=== PATIENT | male | born 1960 | race Two or more races ===

== ENCOUNTER 2017-04-07 10:50 | Inpatient (IN) | payer MEDICARE, MEDICAID ==
[~2017-04-07] VITALS: Ht 177.8 cm; Wt 77.1 kg
[2017-04-07] MEDS ORDERED: MAGNESIUM HYDROXIDE 30 ML UDC PO PRN (14:00)
[2017-04-07] MEDS ORDERED: ACETAMINOPHEN 325 MG TABLET PO PRN (14:00)
[2017-04-07] MEDS ORDERED: MAG HYDROX/AL HYDROX/SIMETH 30 ML UDC PO PRN (14:00)
[2017-04-07] MEDS ORDERED: METO50TA3 PO (14:22)
[2017-04-07] MEDS ORDERED: CLOP75TA2 PO (14:22)
[2017-04-07] MEDS ORDERED: SITA1TAB2 PO (14:22)
[2017-04-07] MEDS ORDERED: ASPI81TA2 PO (14:22)
[2017-04-07] MEDS ORDERED: HYDR-552 PO (14:22)
[2017-04-07] MEDS ORDERED: ALPR0.5T PO (14:22)
--- NOTE | 2017-04-07 15:04 | NUR ---
RN-CO: Admitted a 56 year old male from [facility] ER from home, on a 5150 hold for gravely disabled adult. He is alert and oriented x4, bright affect , calm and cooperative to care which was observe during face to face assessment. Dr Chavez gave his admitting orders at 1300. Dr Lopez was paged to reconcile his home medications.
--- NOTE | 2017-04-07 15:11 | NUR ---
RN-CO: Patient noted with a multiple lacerations on left arm he stated that he did not hurt himself. No s/s of infections noted and pictures where taken. Per hold he has auditory and visual hallucinations however patient denied it. Dr Lopez called back and he stated that he will reconcile patient's home medications.
--- NOTE | 2017-04-07 15:14 | NUR ---
RN-CO: Patient was given "Patient's right hand book" and encouraged him to asked questions. He was also oriented to the unit.
[2017-04-07 16:31] VITALS: BP 128/81
[2017-04-07] MEDS ORDERED: METFORMIN 500 MG TABLET PO SCH (17:00)
[2017-04-07] MEDS: ARIPIPRAZOLE 2 MG TABLET PO SCH (17:36)
[2017-04-07] MEDS: ASPIRIN 81 MG TAB.CHEW PO SCH (17:37)
[2017-04-07] MEDS: ESCITALOPRAM OXALATE (10 MG) 10 MG TABLET PO SCH (17:37)
[2017-04-07] MEDS: CLOPIDOGREL BISULFATE 75 MG TABLET PO SCH (17:37)
[2017-04-07] MEDS: METOPROLOL TARTRATE 50 MG TABLET PO SCH (17:38)
[2017-04-07] MEDS: HYDROCODONE/APAP 5/325MG 1 EACH TABLET PO PRN (17:43)
--- NOTE | 2017-04-07 19:10 | NUR ---
GPS RN NOTES RECEIVED PT SITTING IN BED A/O X3,AWAKE, ABLE TO VERBALIZE NEEDS. NO DISTRESS, NO SOB. MED COMPLIANT. SAFETY PRECAUTIONS OBSERVED. WILL CONTINUE TO MONITOR.
[2017-04-07] MEDS ORDERED: NICOTINE PATCH (21MG) 21 MG PATCH.TD24 TD SCH (19:30)
[2017-04-07 20:00] VITALS: BP 106/66
[2017-04-07] MEDS: GABAPENTIN 300 MG CAPSULE PO SCH (20:43)
[2017-04-08] MEDS: TEMAZEPAM 7.5 MG CAPSULE PO PRN ×2 (00:44→21:26)
--- NOTE | 2017-04-08 06:23 | NUR ---
GPS RN NOTES PT IN BED , RESTING COMFORTABLY., AROUSABLE, A/O X3, ABLE TO MAKE NEEDS KNOWN. NO DISTRESS, NO SOB. MED COMPLIANT. SAFETY PRECAUTIONS OBSERVED. WILL ENDORSE TO NEXT SHIFT FOR REBECCA.
[2017-04-08 07:39] LABS: BASOPHILS % (AUTO) 0.5 % (0.0-2.0); EOSINOPHILS # (AUTO) 0.2 /CMM (0.0-0.7); EOSINOPHILS % (AUTO) 1.6 % (0.0-6.0); HEMATOCRIT 48 % (39-51); HEMOGLOBIN 16.3 g/dL (13.5-17.5); LYMPHOCYTES # (AUTO) 2.1 /CMM (0.8-4.8); LYMPHOCYTES % (AUTO) 21.6 % (20.0-44.0); MEAN CORPUSCULAR HEMOGLOBIN 31 PG (26.0-33.0); MEAN CORPUSCULAR HGB CONC 34 g/dl (31.0-36.0); MEAN CORPUSCULAR VOLUME 91 fL (80-96); MONOCYTES # (AUTO) 0.7 /CMM (0.1-1.30); MONOCYTES % (AUTO) 7.3 % (2.0-12.0); NEUTROPHILS # (AUTO) 6.7 /CMM (1.8-8.9); PLATELET COUNT (AUTO) 152 /CMM (150-450); RDW COEFFICIENT OF VARIATION 13.4 (11.5-15.0); RED BLOOD CELL COUNT(AUTO) 5.22 MIL/uL (4.5-6.0); WHITE BLOOD COUNT (AUTO) 9.7 K/uL (4.3-11.0)
[2017-04-08 08:00] VITALS: BP 141/88
[2017-04-08 08:01] LABS: ALBUMIN 3.6 g/dL (3.4-5.0); BILIRUBIN,TOTAL 0.8 mg/dL (0.2-1.0); CALCIUM, SERUM 8.3 mg/dL (8.5-10.1); CREATININE 0.9 mg/dL (0.6-1.3); POTASSIUM 4.1 mmol/L (3.5-5.1); TOTAL PROTEIN, SERUM 6.6 g/dL (6.4-8.2)
[2017-04-08] MEDS: ESCITALOPRAM OXALATE (10 MG) 10 MG TABLET PO SCH (08:42)
[2017-04-08] MEDS: METOPROLOL TARTRATE 50 MG TABLET PO SCH (08:42)
[2017-04-08] MEDS: ASPIRIN 81 MG TAB.CHEW PO SCH (08:42)
[2017-04-08] MEDS: LINAGLIPTIN 5 MG TABLET PO SCH (08:42)
[2017-04-08] MEDS: ARIPIPRAZOLE 2 MG TABLET PO SCH (08:42)
[2017-04-08] MEDS: GABAPENTIN 300 MG CAPSULE PO SCH ×3 (08:42→17:38)
[2017-04-08] MEDS: CLOPIDOGREL BISULFATE 75 MG TABLET PO SCH (08:43)
[2017-04-08] MEDS: HYDROCODONE/APAP 5/325MG 1 EACH TABLET PO PRN ×2 (08:44→20:15)
[2017-04-08] MEDS: NICOTINE PATCH (21MG) 21 MG PATCH.TD24 TD SCH (08:44)
--- NOTE | 2017-04-08 13:26 | NUR ---
WOUND CARE CONSULT PATIENT WITH JAYMIE AT 22, AMBULATORY, PRESENTS WITH DRY ABRASIONS TO THE LEFT ARM FROM "SCRATCHING". RECOMMEND KEEP CLEAN AND DRY AND OPEN TO AIR. WILL SEE PRN.
[2017-04-08 16:00] VITALS: BP 115/83
--- NOTE | 2017-04-08 16:28 | NUR ---
Recreation Therapy NOte. Addendum: 04/08/17 at 1628 by KENYON VENCES REC Amended: Links added.
[2017-04-08] MEDS: METFORMIN 500 MG TABLET PO SCH (17:38)
[2017-04-08] MEDS: glipiZIDE 5 MG TABLET PO SCH (17:38)
[2017-04-08] MEDS: predniSONE 10 MG TABLET PO SCH (17:38)
--- NOTE | 2017-04-08 19:30 | NUR ---
GPS RN NOTE, RECEIVED PATIENT AWAKE AND IN BED, PATIENT HAS A COMPLAINT OF LOWER BACK PAIN AT A 5 OUT 10 ON THE PAIN SCALE. PATIENT IS TAKING ORAL PAIN MEDICATION FOR THIS PAIN. PATIENT IS DISPLAYING NO S/S OF APPARENT DISTRESS AT THIS TIME. PATIENT BREATHING IS UNLABORED WITH EQUAL RISE AND FALL OF THE CHEST. PATIENT IS ALERT AND ORIENTED X 3 ON ROOM AIR WITH A SPO2 98%. PATIENT COMPLAINT WITH MEDICATION, ANXIOUS, COOPERATIVE, CALM, CAN BE PARANOID AT TIMES, AND NEEDS REORIENTATION. PATIENT DENIES SUICIDE AND HOMICIDAL IDEATIONS AT THIS TIME. PATIENT ASSISTED WITH TURNING AND REPOSITIONING Q2HR AND PRN FOR COMFORT AND CIRCULATION. PATIENT HAS NO NEEDS AT THIS TIME. PATIENT EDUCATED ON THE USE OF THE CALL ABRAHAM. PATIENT BED SIDE RAILS UP X2 FOR SAFETY, BED IS LOCKED AND LOW WILL CONTINUE TO MONITOR AND MAINTAIN SAFETY.
[2017-04-08 20:00] VITALS: BP 104/73
--- NOTE | 2017-04-08 20:15 | NUR ---
GPS RN NOTE, PATIENT HAS A COMPLAINT OF LOWER BACK PAIN AT 5 OUT 10 ON THE PAIN SCALE AND WOULD LIKE MEDICATION AT THIS TIME. PATIENT VITAL SIGNS ARE STABLE. GAVE NORCO 5-325 PO Q6 HR PRN ORDERED. WILL REASSESS PAIN AND I WILL CONTINUE TO MONITOR THIS PATIENT.
--- NOTE | 2017-04-08 21:26 | NUR ---
GPS RN NOTE, PATIENT HAS A COMPLAINT OF NOT BEING ABLE TO SLEEP AND WOULD A SLEEPING AID AT THIS TIME. PATIENT VITAL SIGNS ARE STABLE. GAVE RESTORIL 7.5MG PO HS ORDERED. WILL REASSESS FOR INSOMNIA AND I WILL CONTINUE TO MONITOR THIS PATIENT.
[2017-04-09] MEDS: LORAZEPAM 0.5 MG TABLET PO PRN (04:00)
--- NOTE | 2017-04-09 04:00 | NUR ---
GPS RN NOTE, PATIENT HAS A COMPLAINT OF FEELING ANXIOUS AND WOULD LIKE MEDICATION TO HELP CALM HIM DOWN. PATIENT VITAL SIGNS ARE STABLE. GAVE ATIVAN 0.5MG PO Q6HR PRN ORDERED. WILL REASSESS FOR ANXIETY AND I WILL CONTINUE TO MONITOR THIS PATIENT.
[2017-04-09 08:00] VITALS: BP 127/79
[2017-04-09] MEDS: METFORMIN 500 MG TABLET PO SCH ×2 (08:15→17:19)
[2017-04-09] MEDS: ESCITALOPRAM OXALATE (10 MG) 10 MG TABLET PO SCH (08:15)
[2017-04-09] MEDS: CLOPIDOGREL BISULFATE 75 MG TABLET PO SCH (08:15)
[2017-04-09] MEDS: GABAPENTIN 300 MG CAPSULE PO SCH ×3 (08:15→17:19)
[2017-04-09] MEDS: glipiZIDE 5 MG TABLET PO SCH ×2 (08:15→17:19)
[2017-04-09] MEDS: NICOTINE PATCH (21MG) 21 MG PATCH.TD24 TD SCH (08:16)
[2017-04-09] MEDS: predniSONE 10 MG TABLET PO SCH (08:16)
[2017-04-09] MEDS: METOPROLOL TARTRATE 50 MG TABLET PO SCH (08:16)
[2017-04-09] MEDS: ASPIRIN 81 MG TAB.CHEW PO SCH (08:16)
[2017-04-09] MEDS: LINAGLIPTIN 5 MG TABLET PO SCH (08:16)
[2017-04-09] MEDS: ARIPIPRAZOLE 2 MG TABLET PO SCH (09:25)
[2017-04-09] MEDS: HYDROCODONE/APAP 5/325MG 1 EACH TABLET PO PRN ×2 (11:59→22:17)
--- NOTE | 2017-04-09 13:53 | NUR ---
Initial Discharge Plan: Per patient, he lives alone [address] [facility]. [address] [address] ([phone]. Patient would like to return home upon discharge. Sw attempted to contact patient's daughter Alyce Paiz . However, she was unavailable. Sw left her a detailed message with her direct contact information and will attempt again later. Sw will help form a safe and proper discharge.
[2017-04-09 16:23] VITALS: BP 158/90
--- NOTE | 2017-04-09 17:09 | NUR ---
Sw spoke to patient's daughter Alyce Paiz who stated that she lives in the same building as the patient and takes care of the patient. Patient's daughter requested to speak the assigned psychiatrist as she does not believe patient is ready for discharge any time soon. Patient's daughter stated that patient acts one way with her and changes when he around other people. Patient's daughter is afraid that patient may harm himself due to his delusions. Sw will inform assigned psychiatrist that daughter is requesting to speak to them.
[2017-04-09 20:00] VITALS: BP 142/82
[2017-04-09] MEDS: TEMAZEPAM 7.5 MG CAPSULE PO PRN (22:16)
[2017-04-10] MEDS: LORAZEPAM 0.5 MG TABLET PO PRN (00:38)
[2017-04-10 08:00] VITALS: BP 118/58
[2017-04-10 08:15] LABS: CHOLESTEROL 296 mg/dL (<200); HDL CHOLESTEROL 43 mg/dL (40-60); LDL 214 mg/dL (0-99); TRIGLYCERIDES 258 mg/dL (30-150)
[2017-04-10] MEDS: NICOTINE PATCH (21MG) 21 MG PATCH.TD24 TD SCH (08:26)
[2017-04-10] MEDS: predniSONE 10 MG TABLET PO SCH (08:26)
[2017-04-10] MEDS: ESCITALOPRAM OXALATE (10 MG) 10 MG TABLET PO SCH (08:26)
[2017-04-10] MEDS: METFORMIN 500 MG TABLET PO SCH ×2 (08:26→17:05)
[2017-04-10] MEDS: CLOPIDOGREL BISULFATE 75 MG TABLET PO SCH (08:26)
[2017-04-10] MEDS: LINAGLIPTIN 5 MG TABLET PO SCH (08:26)
[2017-04-10] MEDS: ASPIRIN 81 MG TAB.CHEW PO SCH (08:26)
[2017-04-10] MEDS: GABAPENTIN 300 MG CAPSULE PO SCH ×3 (08:26→17:05)
[2017-04-10] MEDS: glipiZIDE 5 MG TABLET PO SCH ×2 (08:26→17:05)
[2017-04-10] MEDS: METOPROLOL TARTRATE 50 MG TABLET PO SCH (08:27)
[2017-04-10] MEDS: ARIPIPRAZOLE 2 MG TABLET PO SCH (09:13)
[2017-04-10] MEDS: ATORVASTATIN 10 MG TABLET PO SCH ×2 (11:24→21:29)
[2017-04-10] MEDS: HYDROCODONE/APAP 5/325MG 1 EACH TABLET PO PRN ×2 (12:06→20:12)
[2017-04-10 16:00] VITALS: BP 116/79
--- NOTE | 2017-04-10 19:42 | NUR ---
gps/rn opening notes patient sitting in bed, able to make conversation w/ family. w/ good eye contact. cooperative to care. will continue to monitor and provide care. can take po meds w/ no difficulty. can ambulate w/ supervision. will assess for any need of pain meds. no grimace and no guarding.
[2017-04-10 20:00] VITALS: BP 130/65
[2017-04-10] MEDS: TEMAZEPAM 7.5 MG CAPSULE PO PRN (22:00)
--- NOTE | 2017-04-10 22:00 | NUR ---
gps/rn notes patient unable to sleep during the night requested sleeping pill, Temazepam po 7.5mg given will monitor for effectiveness.
[2017-04-11] MEDS: LORAZEPAM 0.5 MG TABLET PO PRN (01:12)
--- NOTE | 2017-04-11 01:12 | NUR ---
gps/rn notes observed restlessness and stated "need to calm down" Ativan given.
[2017-04-11 08:00] VITALS: BP 117/81
[2017-04-11] MEDS: ARIPIPRAZOLE 2 MG TABLET PO SCH (08:25)
[2017-04-11] MEDS: glipiZIDE 5 MG TABLET PO SCH ×2 (08:25→15:51)
[2017-04-11] MEDS: GABAPENTIN 300 MG CAPSULE PO SCH ×3 (08:25→16:19)
[2017-04-11] MEDS: ESCITALOPRAM OXALATE (10 MG) 10 MG TABLET PO SCH (08:25)
[2017-04-11] MEDS: LINAGLIPTIN 5 MG TABLET PO SCH (08:25)
[2017-04-11] MEDS: ASPIRIN 81 MG TAB.CHEW PO SCH (08:25)
[2017-04-11] MEDS: CLOPIDOGREL BISULFATE 75 MG TABLET PO SCH (08:25)
[2017-04-11] MEDS: METOPROLOL TARTRATE 50 MG TABLET PO SCH (08:26)
[2017-04-11] MEDS: predniSONE 10 MG TABLET PO SCH (08:26)
[2017-04-11] MEDS: NICOTINE PATCH (21MG) 21 MG PATCH.TD24 TD SCH (08:28)
[2017-04-11] MEDS: METFORMIN 500 MG TABLET PO SCH ×2 (09:11→16:19)
[2017-04-11] MEDS: HYDROCODONE/APAP 5/325MG 1 EACH TABLET PO PRN ×3 (09:11→21:54)
[2017-04-11 16:00] VITALS: BP 149/82
[2017-04-11 20:00] VITALS: BP 124/81
[2017-04-11] MEDS: ATORVASTATIN 10 MG TABLET PO SCH (21:54)
[2017-04-11] MEDS: TEMAZEPAM 7.5 MG CAPSULE PO PRN (23:22)
--- NOTE | 2017-04-12 00:43 | NUR ---
Pt has been restless, seeking narcotic meds, paranoid, & blunted but redirectable.
[2017-04-12] MEDS: glipiZIDE 5 MG TABLET PO SCH ×2 (07:30→18:37)
[2017-04-12 08:17] VITALS: BP 130/74
[2017-04-12] MEDS: NICOTINE PATCH (21MG) 21 MG PATCH.TD24 TD SCH (09:32)
[2017-04-12] MEDS: LINAGLIPTIN 5 MG TABLET PO SCH (09:32)
[2017-04-12] MEDS: predniSONE 10 MG TABLET PO SCH (09:32)
[2017-04-12] MEDS: ESCITALOPRAM OXALATE (10 MG) 10 MG TABLET PO SCH (09:33)
[2017-04-12] MEDS: ASPIRIN 81 MG TAB.CHEW PO SCH (09:33)
[2017-04-12] MEDS: GABAPENTIN 300 MG CAPSULE PO SCH ×3 (09:33→18:37)
[2017-04-12] MEDS: ARIPIPRAZOLE 2 MG TABLET PO SCH (09:33)
[2017-04-12] MEDS: METFORMIN 500 MG TABLET PO SCH ×2 (09:33→18:37)
[2017-04-12] MEDS: CLOPIDOGREL BISULFATE 75 MG TABLET PO SCH (09:33)
[2017-04-12] MEDS: METOPROLOL TARTRATE 50 MG TABLET PO SCH (09:37)
[2017-04-12 15:59] VITALS: BP 113/58
--- NOTE | 2017-04-12 16:44 | NUR ---
Fabiana spoke to patient's daughter Alyce Paiz who stated that she was very upset and frustrated that she had not heard from the assigned psychiatrist. Alyce stated that she had requested that patient receive an MRI as she believed that the medication is not working and the delusions could be due to something neurological. Alyce stated that she was ready to get a retail store assistant because she was very unhappy with the care her father was receiving. Fabiana informed Alyce that she would notify Dr. Hsu that she wants to speak to him urgently. Alyce was calmer toward the end of the conversation and appeared content with the information provided. Fabiana will follow-up.
[2017-04-12 19:40] VITALS: BP 139/87
[2017-04-12] MEDS: HYDROCODONE/APAP 5/325MG 1 EACH TABLET PO PRN (20:31)
[2017-04-12] MEDS: ATORVASTATIN 10 MG TABLET PO SCH (21:07)
[2017-04-12] MEDS: TEMAZEPAM 7.5 MG CAPSULE PO PRN (21:07)
[2017-04-13] MEDS: LORAZEPAM 0.5 MG TABLET PO PRN (00:16)
[2017-04-13] MEDS: HYDROCODONE/APAP 5/325MG 1 EACH TABLET PO PRN (07:06)
[2017-04-13 08:00] VITALS: BP 122/77
[2017-04-13] MEDS: GABAPENTIN 300 MG CAPSULE PO SCH (08:13)
[2017-04-13] MEDS: LINAGLIPTIN 5 MG TABLET PO SCH (08:13)
[2017-04-13] MEDS: predniSONE 10 MG TABLET PO SCH (08:13)
[2017-04-13] MEDS: ASPIRIN 81 MG TAB.CHEW PO SCH (08:13)
[2017-04-13] MEDS: METFORMIN 500 MG TABLET PO SCH (08:13)
[2017-04-13 08:14] VITALS: BP 122/77
[2017-04-13] MEDS: glipiZIDE 5 MG TABLET PO SCH (08:14)
[2017-04-13] MEDS: CLOPIDOGREL BISULFATE 75 MG TABLET PO SCH (08:14)
[2017-04-13] MEDS: METOPROLOL TARTRATE 50 MG TABLET PO SCH (08:14)
[2017-04-13] MEDS: NICOTINE PATCH (21MG) 21 MG PATCH.TD24 TD SCH (08:14)
[2017-04-13] MEDS ORDERED: ESCITALOPRAM OXALATE (10 MG) 10 MG TABLET PO SCH (09:00)
[2017-04-13] MEDS ORDERED: ARIPIPRAZOLE 5 MG TABLET PO SCH (09:00)
--- NOTE | 2017-04-13 12:30 | NUR ---
GPS/RN PATIENT CLEARED FOR DISCHARGE HOME TO [address] [place] [phone] ([phone]). PATIENT WAS CLEARED FOR D/C BY THE COURTS AND DR WOLFF AND TADEO MONTALVO ARE AWARE. Patient's DAUGHTER ATUL ZAMORA WAS NOTIFIED AND CAME TO THE UNIT TO PICK PATIENT UP. ([phone]) DISCHARGE PAPER WORK COMPLETED, PACKET AND PRESCRIPTIONS EXPLAINED TO PATIENT. PATIENT STATED HE DID NOT NEED ANY PRESCRIPTIONS BUT PRESCRIPTIONS WERE INCLUDED. PATIENT DENIES SI/HI/AH UPON DISCHARGE, PSYCHIATRIC TREATMENT PLANS MET. LEFT UNIT CALM, COOPERATIVE, STABLE CONDITION WITH DAUGHTER ATUL AND DISBURSEMENT CLERK AT SIDE. Addendum: 04/13/17 at 1906 by RADHA GOMEZ RN BELONGINGS/VALUABLES RETURNED, AND SIGNED FOR BY PATIENT.
--- NOTE | 2017-04-13 12:35 | NUR ---
Discharge Note: Patient will be discharged home [address] [facility]. [address] [address] ([phone]). Patient's daughter Alyce Paiz ([phone]) was notified and will pick him up via private vehicle. Patient and patient's daughter were agreeable with the discharge. Patient's mood and affect were appropriate. Patient denied suicidal and homicidal ideations. Patient stated that he would follow up with Dr. Chavez upon discharge. Patient was referred to [place] [id number] for an inatke appointment at 9:00am on 04/14/17. Patient will attend Nicotine Anonymous at 7:00 PM on 03/15/17 at the [facility] in [facility] at [address] Facilitated info to IDT team who are in agreement with discharge arrangement. The multidisciplinary exitcare form was done, printed, signed, and given to the patient.
== END 2017-04-13 12:30 | disposition home or self-care (01) | DRG 885 ==
LOC: GPS 13:00
PROVIDERS: ADMIT Psychiatry & Neurology Psychiatry; ATTEND Internal Medicine
DX: F33.3 Major depressive disorder, recurrent, severe with psychotic symptoms (principal); E11.65 Type 2 diabetes mellitus with hyperglycemia; E78.5 Hyperlipidemia, unspecified; I10 Essential (primary) hypertension; F17.210 Nicotine dependence, cigarettes, uncomplicated; R51 Headache; F11.10 Opioid abuse, uncomplicated; F10.10 Alcohol abuse, uncomplicated; F12.10 Cannabis abuse, uncomplicated; L50.9 Urticaria, unspecified
CPT/HCPCS: 36415; 80048-TC; 80053-TC; 80061-TC; 85025-TC; 87081-TC

== ENCOUNTER 2023-11-30 14:53 | Inpatient (IN) | payer OTHER ==
[~2023-11-30] VITALS: Ht 177.8 cm; Wt 80.3 kg
[~2023-11-30 14:53] MED LIST: ALPR0.5T PO; ASPI-1169 PO; CLOP75TA15 PO; HYDR-4384 PO; METO50TA16 PO; SITA1TAB2 PO
[2023-11-30] MEDS ORDERED: MAG HYDROX/AL HYDROX/SIMETH 30 ML UDC PO PRN (15:30)
[2023-11-30] MEDS ORDERED: clonazePAM 0.5 MG TABLET PO PRN (15:30)
[2023-11-30] MEDS ORDERED: MAGNESIUM HYDROXIDE 30 ML UDC PO PRN (15:30)
[2023-11-30 15:48] VITALS: BP 128/86; TEMP 98.7; O2SAT 100
[2023-11-30] MEDS: BLOOD SUGAR DIAGNOSTIC 1 EACH STRIP IN ONE (15:56)
[2023-11-30 16:00] VITALS: BP 128/86; TEMP 98.7; O2SAT 100
[2023-11-30] MEDS ORDERED: ALFU10TA10 PO (18:26)
[2023-11-30] MEDS ORDERED: TRAZ-252 PO (18:26)
[2023-11-30] MEDS ORDERED: DIPH25CA83 PO (18:26)
[2023-11-30] MEDS ORDERED: DEXA4TAB PO (18:26)
[2023-11-30] MEDS ORDERED: INSU200I4 SQ (18:26)
[2023-11-30] MEDS ORDERED: MONT10TA22 PO (18:26)
[2023-11-30] MEDS ORDERED: ZOLP10TA2 PO (18:26)
[2023-11-30] MEDS ORDERED: SERT100T12 PO (18:26)
[2023-11-30] MEDS ORDERED: METF-442 PO (18:26)
[2023-11-30 20:35] VITALS: BP 101/63; TEMP 97.8; O2SAT 98
[2023-11-30] MEDS: TEMAZEPAM 7.5 MG CAPSULE PO PRN (21:16)
[2023-11-30] MEDS ORDERED: TEMAZEPAM 15 MG CAPSULE PO PRN (22:30)
[2023-12-01 08:00] VITALS: BP 118/83; TEMP 98.1; O2SAT 99
[2023-12-01 08:37] LABS: ALBUMIN 3.4 g/dL (3.4-5.0); BILIRUBIN,TOTAL 0.7 mg/dL (0.2-1.0); CALCIUM, SERUM 8.8 mg/dL (8.5-10.1); POTASSIUM 4.1 mmol/L (3.5-5.1); TOTAL PROTEIN, SERUM 6.6 g/dL (6.4-8.2)
[2023-12-01 08:38] LABS: CHOLESTEROL 175 mg/dL (<200); HDL CHOLESTEROL 47 mg/dL (40-60); LDL 94 mg/dL (0-99); TRIGLYCERIDES 135 mg/dL (30-150)
[2023-12-01] MEDS: MONTELUKAST SODIUM (10MG) 10 MG TABLET PO SCH (08:42)
[2023-12-01] MEDS: CLOPIDOGREL BISULFATE 75 MG TABLET PO SCH (08:42)
[2023-12-01] MEDS: METOPROLOL TARTRATE 25 MG TABLET PO SCH (08:43)
[2023-12-01] MEDS: QUETIAPINE FUMARATE 25 MG TABLET PO SCH (08:43)
[2023-12-01] MEDS: SERTRALINE HCL 50 MG TABLET PO SCH (08:43)
[2023-12-01] MEDS: dexAMETHasone 4 MG TABLET PO SCH (08:43)
[2023-12-01] MEDS: METFORMIN 500 MG TABLET PO SCH (08:43)
[2023-12-01] MEDS ORDERED: DEXTROSE 50%-WATER 50 ML DISP.SYRIN IV PRN (11:00)
[2023-12-01] MEDS: BLOOD SUGAR DIAGNOSTIC 1 EACH STRIP VI SCH (11:35)
[2023-12-01] MEDS: INSULIN REGULAR, HUMAN 100 UNIT/ML 3 ML VIAL SQ PRN (11:49)
[2023-12-01 16:00] VITALS: BP 99/55; TEMP 98.1; O2SAT 97
[2023-12-01 16:05] LABS: CREATININE 1.1 mg/dL (0.6-1.3)
[2023-12-01] MEDS: NICOTINE PATCH (21MG) 21 MG PATCH.TD24 TD SCH (19:59)
[2023-12-01 20:00] VITALS: BP 152/95; TEMP 98.3; O2SAT 98
[2023-12-01] MEDS: clonazePAM 0.5 MG TABLET PO PRN (20:00)
[2023-12-01] MEDS: QUETIAPINE FUMARATE 100 MG TABLET PO SCH (21:08)
[2023-12-01] MEDS: *INSULIN REGULAR(HUMULIN R)HUM 100 UNIT/ML VIAL SQ PRN (21:48)
[2023-12-02 08:00] VITALS: BP 145/77; TEMP 98.3; O2SAT 98
[2023-12-02] MEDS: HYDROCODONE/APAP 5/325MG TABLET PO PRN (08:41)
[2023-12-02] MEDS ORDERED: NICOTINE PATCH (21MG) 21 MG PATCH.TD24 TD SCH (09:00)
[2023-12-02 16:00] VITALS: BP 123/66; TEMP 97.9; O2SAT 97
[2023-12-02 20:00] VITALS: BP 116/71; TEMP 98.2; O2SAT 98
[2023-12-02] MEDS: TEMAZEPAM 15 MG CAPSULE PO PRN (23:24)
[2023-12-03 08:00] VITALS: BP 109/72; TEMP 98; O2SAT 96
[2023-12-03 08:18] VITALS: BP 100/61
[2023-12-03 16:00] VITALS: BP 137/83; TEMP 98; O2SAT 96
[2023-12-03] MEDS: ACETAMINOPHEN 325 MG TABLET PO PRN (18:46)
[2023-12-03 20:00] VITALS: BP 128/80; TEMP 98.1; O2SAT 96
[2023-12-03] MEDS: QUETIAPINE FUMARATE 100 MG TABLET PO SCH (21:31)
[2023-12-04 08:00] VITALS: BP 120/71; TEMP 98; O2SAT 98
[2023-12-04 16:00] VITALS: BP 120/82; TEMP 97.7; O2SAT 97
[2023-12-04 20:20] VITALS: BP 115/68; TEMP 98.1; O2SAT 97
[2023-12-05 08:00] VITALS: BP 126/72; TEMP 98.7; O2SAT 98
[2023-12-05 16:00] VITALS: BP 141/84; TEMP 97.5; O2SAT 99
[2023-12-05 20:41] VITALS: BP_SYST 137; BP_SYST 176; BP_DIAS 72; BP_DIAS 88; TEMP 97.9; O2SAT 99
[2023-12-06 08:00] VITALS: BP 146/83; TEMP 98.2; O2SAT 98
[2023-12-06 08:27] VITALS: BP 128/60
== END 2023-12-06 13:15 | disposition home or self-care (01) | DRG 885 ==
LOC: GPS 14:53
PROVIDERS: ADMIT Psychiatry & Neurology Psychiatry; ATTEND Student in an Organized Health Care Education/Training Program
DX: F33.3 Major depressive disorder, recurrent, severe with psychotic symptoms (principal); Z91.148 Patient's other noncompliance with medication regimen for other reason; F17.290 Nicotine dependence, other tobacco product, uncomplicated; E78.5 Hyperlipidemia, unspecified; I25.10 Atherosclerotic heart disease of native coronary artery without angina pectoris; Z95.1 Presence of aortocoronary bypass graft; I10 Essential (primary) hypertension; E11.9 Type 2 diabetes mellitus without complications; Z79.84 Long term (current) use of oral hypoglycemic drugs; M48.00 Spinal stenosis, site unspecified; F41.9 Anxiety disorder, unspecified; Z79.899 Other long term (current) drug therapy; M17.11 Unilateral primary osteoarthritis, right knee
CPT/HCPCS: 36415; 80048-TC; 80053-TC; 80061-TC; 82565-TC; 82962-TC; 84443-TC; J1815; J8540